=== PATIENT | female | born 1935 | race Caucasian/White ===

== ENCOUNTER 2020-11-27 04:58 | Day surgery (SDC) | payer OTHER, MEDICARE ==
[2020-11-22 16:51] VITALS: BMI 25.9
[2020-11-27 12:01] VITALS: TEMP 98
[2020-11-27 13:03] VITALS: BP 131/68; PULSE 59
== END 2020-11-27 13:26 | disposition home or self-care (01) ==
LOC: JASU-ENDO 04:58
PROVIDERS: ATTEND Internal Medicine Gastroenterology
PROC: 0DB68ZX Excision of Stomach, Via Natural or Artificial Opening Endoscopic, Diagnostic (ICD-10-PCS; principal; 2020-11-27 12:16)
DX: K29.50 Unspecified chronic gastritis without bleeding (principal); I10 Essential (primary) hypertension
CPT/HCPCS: 88305-TC; 88342-TC